=== PATIENT | female | born 1975 | race Caucasian/White ===

== ENCOUNTER 2018-08-24 11:57 | Emergency (ER) | payer OTHER ==
--- NOTE | 2018-08-24 13:06 | ED ---
Female Urogenital HPI - General Chief complaint: Urogenital Stated complaint: Female Time Seen by Provider: 08/24/18 12:18 Source: patient Mode of arrival: ambulatory Limitations: no limitations - History of Present Illness Initial comments: 43-year-old male presenting for dysuria urgency frequency and hematuria. Patient states she has frequent urinary tract infections, she treats this to holding her urine at work. Patient states she began experiencing these symptoms 2 days prior she states they're identical to when she's had a urinary tract inf ection in the past. Patient denies recent antibiotic use. Patient denies any back pain fever chills night sweats abdominal pain. Patient denies any vaginal discharge or bleeding. Patient denies . Remaining review of system negative. Upon arrival patient appears well, nontoxic. VS WNL. - Related Data Previous Rx's Medication Instructions Recorded Sulfamethox-Tmp 800-160Mg [Bactrim 1 tab PO Q12HR 3 Days #6 tab 08/24/18 DS 800-160 mg] Allergies Allergy/AdvReac Type Severity Reaction Status Date / Time latex Allergy Unknown Verified 08/24/18 12:11 Review of Systems ROS Statement: Those systems with pertinent positive or pertinent negative responses have been documented in the HPI. ROS Other: All systems not noted in ROS Statement are negative. Past Medical History Additional Past Medical History / Comment(s): UTI's History of Any Multi-Drug Resistant Organisms: None Reported Past Surgical History: Hysterectomy Past Psychological History: No Psychological Hx Reported Smoking Status: Never smoker Past Alcohol Use History: None Reported Past Drug Use History: Marijuana General Exam - General Exam Comments Initial Comments: General: The patient is awake and alert, in no distress, and does not appear acutely ill. Eye: Pupils are equal, round and reactive to light, extra-ocular movements are intact. No nystagmus. There is normal conjunctiva bilaterally. No signs of icterus. Ears, nose, mouth and throat: There are moist mucous membranes and no oral lesions. Neck: The neck is supple, there is no tenderness or JVD. Cardiovascular: There is a regular rate and rhythm. No murmur, rub or gallop is appreciated. Respiratory: Lungs are clear to auscultation, respirations are non-labored, breath sounds are equal. No wheezes, stridor, rales, or rhonchi. Gastrointestinal: Soft, non-distended, non-tender abdomen without masses or organomegaly noted. There is no rebound or guarding present. No CVA tenderness. Bowel sounds are unremarkable. Musculoskeletal: Normal ROM, no tenderness. Strength 5/5. Sensation intact. Pulses equal bilaterally 2+. Neurological: A&O x 3. CN II-XII intact, There are no obvious motor or sensory deficits. Coordination appears grossly intact. Speech is normal. Skin: Skin is warm and dry and no rashes or lesions are noted. Psychiatric: Cooperative, appropriate mood & affect, normal judgment. Limitations: no limitations Course Vital Signs 08/24/18 08/24/18 08/24/18 12:09 13:08 14:04 Temperature 97.9 F 97.6 F 97.6 F Pulse Rate 84 71 77 Respiratory 18 16 16 Rate Blood Pressure 121/80 116/77 116/71 O2 Sat by Pulse 99 96 96 Oximetry Medical Decision Making - Medical Decision Making 43-year-old male presenting for dysuria urgency frequency hematuria. Patient states she has experienced hematuria with urinary tract infections in the past. Denies history of stones. Patient denies back pain. Patient denies fever chills night sweats or any other constitutional symptoms. Patient appears well nontoxic. Vital signs within normal limits. Patient is afebrile. Urinary analysis revealed findings consistent with infection. Patient be treated with Bactrim. Patient was provider starter pack. Patient is instructed to follow-up outpatient with primary care provider or return for any worsening symptoms including developed a fever, back pain. Patient is agreeable to plan of care as well as discharged denies questions at this time. Patient provided work note. Case was discussed with a provider Dr. Omer who reviewed laboratory studies is agreeable patient plan of care at this time. - Lab Data Lab Results 08/24/18 Range/Units 12:45 Urine Color Light Red Urine Appearance Turbid H (Clear) Urine pH 6.0 (5.0-8.0) Ur Specific [place] 1.024 (1.001-1.035) Urine Protein 2+ H (Negative) Urine Glucose (UA) Negative (Negative) Urine Ketones Negative (Negative) Urine Blood Large H (Negative) Urine Nitrite Negative (Negative) Urine Bilirubin Negative (Negative) Urine Urobilinogen 2.0 (<2.0) mg/dL Ur Leukocyte Esterase Large H (Negative) Urine RBC >182 H (0-5) /hpf Urine WBC >182 H (0-5) /hpf Urine WBC Clumps Many H (None) /hpf Ur Squamous Epith Cells 12 H (0-4) /hpf Urine Bacteria Occasional H (None) /hpf Urine Mucus Many H (None) /hpf Disposition Clinical Impression: UTI (urinary tract infection) Disposition: HOME SELF-CARE Condition: Good Instructions (If sedation given, give patient instructions): Urinary Tract Infection in Women (ED) Additional Instructions: Please use medication as discussed. Please follow-up with family doctor in the next 2 days of symptoms have not improved. Please return to emergency room if the symptoms increase or worsen or for any other concerns. Prescriptions: Sulfamethox-Tmp 800-160Mg [Bactrim DS 800-160 mg] 1 tab PO Q12HR 3 Days #6 tab Is patient prescribed a controlled substance at d/c from ED?: No Referrals: None,Stated [Primary Care Provider] - 1-2 days [facility] [[facility]] - 1-2 days Time of Disposition: 13:06
[2018-08-24 13:12] VITALS: RESP 16; TEMP 97.6
[2018-08-24 13:33] LABS: Appearance,Urine Turbid (Clear); Bacteria,Urine Occasional /hpf; Bilirubin,Urine Negative (Negative); Blood,Urine Large (Negative); Color,Urine Light Red; Glucose,Urine (UA) Negative (Negative); Ketones,Urine Negative (Negative); Leukocyte Esterase,Urine Large (Negative); Mucus,Urine Many /hpf; Nitrite,Urine Negative (Negative); Protein,Urine 2+ (Negative); RBC,Urine >182 /hpf (0-5); Specific Gravity,Urine 1.024 (1.001-1.035); Squamous Epithelial Cell,Urine 12 /hpf (0-4)
[2018-08-24] MEDS ORDERED: SULFAMETH-TMP DS STARTER PACK 2 TAB BTL PO STA (13:40)
[2018-08-24 14:05] VITALS: BP 116/71; PULSE 77
== END 2018-08-24 14:06 | disposition home or self-care (01) ==
LOC: EC 11:57
DX: N39.0 Urinary tract infection, site not specified (principal); Z91.040 Latex allergy status; Z90.710 Acquired absence of both cervix and uterus
CPT/HCPCS: 81001; 87086; 99283